=== PATIENT | male | born 1975 | race Caucasian/White ===

== ENCOUNTER 2016-09-28 11:15 | Inpatient (IN) ==
[2016-09-28 12:37] LABS: MANUAL DIFF NEEDED? NO
[2016-09-28 12:42] LABS: BASO% 0.7 % (0.0-0.8); EOS# 0.37 X1000 (0.0-0.7); HEMATOCRIT 44.8 % (42.0-52.0); HEMOGLOBIN 15.2 g/dL (14.0-18.0); IMM GRAN# 0.02 X1000 (0.0-0.04); IMM GRAN% 0.2 % (0.0-0.5); LYMPH# 1.64 X1000 (1.2-3.4); LYMPH% 17.8 % (20.5-51.1); MCH 29.9 PG (27-31); MCHC 33.9 g/dL (33-37); MONO# 0.99 X1000 (0.11-0.59); MONO% 10.7 % (1.7-9.3); MPV 9.9 FL (7.4-10.4); NEUT% 66.6 % (42.2-75.2); PLT 303 X1000 (130-400); RBC 5.09 XMIL (4.7-6.1)
[2016-09-28 12:51] LABS: AGAP 10; ALKALINE PHOSPHATASE 79 U/L (32-122); BUN 17 mg/dL (8-22); CALCIUM 8.4 mg/dL (8.8-10.2); CHLORIDE 104 mmol/L (98-107); COSMO 277; GOT 16 U/L (10-34); GPT 19 U/L (10-44); POTASSIUM 4.3 mmol/L (3.5-5.1); SODIUM 138 mmol/L (136-145); TCO2 24 mmol/L (25-35); TOTAL BILIRUBIN 0.36 mg/dL (0.20-1.00); TOTAL PROTEIN 7.3 g/dL (6.3-8.3)
[2016-09-28 12:53] LABS: INR 1.01; PROTIME 10.6 Seconds (9.2-11.7); PTT 26.9 Seconds (22.0-36.0)
[2016-09-28] MEDS ORDERED: HEPARIN IV ONE (13:09)
[2016-09-28] MEDS ORDERED: HEPARIN IV PRN (13:59)
[2016-09-28] MEDS: HEPARIN 25,000 UNITS/D5W 25,000 UNIT/250 ML IV.SOLN IV SCH (14:10)
[2016-09-28] MEDS ORDERED: ZOFRAN IV PRN (14:41)
[2016-09-28] MEDS ORDERED: TYLENOL PO PRN (14:41)
[2016-09-28] MEDS: NS 1,000 ML IV SCH (18:13)
[2016-09-28] MEDS: XANAX PO PRN (18:23)
[2016-09-28 19:37] LABS: INR 1.03; PROTIME 10.8 Seconds (9.2-11.7)
--- NOTE | 2016-09-28 21:02 | HISTORY AND PHYSICAL ---
CHIEF COMPLAINT: Left leg pain. HISTORY OF PRESENT ILLNESS: The patient is a pleasant 40-year-old male who presented to the ER today with left leg pain that essentially has been going on for 2 weeks. He stated that it started really swelling last week. He thought the pain was related to his plantar fasciitis then realized is was getting worse, so he came here. Ultrasound Doppler revealed an extensive left popliteal DVT down to his left ankle. He was essentially started on a heparin drip in the ER and we are admitting him to the unit. PAST MEDICAL HISTORY: Patient states none. SURGICAL HISTORY: None. SOCIAL HISTORY: Patient denies alcohol, tobacco use or any illicit drug use. 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 FAMILY HISTORY: States his father is a diabetic. REVIEW OF SYSTEMS: Ten point review of systems complete except for those mentioned above in the HPI. ALLERGIES: No known drug allergies. HOME MEDICATIONS: None. PHYSICAL EXAMINATION: VITAL SIGNS: Blood pressure 127/87, respirations heart rate 77, O2 saturation 100% on room air. GENERAL: Mr. Johnson is a pleasant well-nourished 40-year-old male. He did answer questions appropriately. HEENT: Atraumatic normocephalic. Pupils equal, round, reactive to light. EOMs intact. Mucous membranes moist. NECK: Supple. Trachea midline. No JVD noted. No bruits. CARDIOVASCULAR: S1, S2 auscultated, regular rate and rhythm. No murmurs, gallops, rubs. PULMONARY: Lung sounds clear and equal throughout with equal chest excursion. Nonlabored, no accessory muscle use. The patient denies shortness of breath or any chest pain. GI: Bowel sounds auscultated in all 4 quadrants. Soft, nontender, nondistended. NEUROLOGIC: Cranial nerves 2-12 intact. The patient is alert and oriented x4. MUSCULOSKELETAL: Patient is able to move extremities well. Muscle strength is equal throughout. EXTREMITIES: Warmth noted on his left lower leg from his knee down to his ankle. There is some erythema noted there. Does have good +2 pedal pulses there. Otherwise, dorsalis pedis and radial pulses are equal throughout the rest of his extremities. SKIN: Warm, dry, intact with erythema noted to the left lower leg. Otherwise, no rashes, bruises, diaphoresis noted. LABORATORY: White cell count 9.2, hemoglobin 15, hematocrit 45, platelets 303,000. Sodium 138, potassium 4.3, chloride 104, bicarb 24, BUN 17, creatinine 0.7, glucose 98. IMAGING: Doppler of his left lower extremity revealed extensive deep vein thrombosis to his popliteal down to his left ankle. ASSESSMENT AND PLAN: 1. Deep vein thrombosis to his left leg. We initiated a heparin drip. We will monitor INRs, PT and Deep venous thromboses. Hypocoagulability workup has been ordered. We will monitor. 2. Gastrointestinal prophylaxis. Proton pump inhibitor. Prilosec as been ordered. 3. Anxiety. Patient stated upon exam that he requested something for anxiety. He does not take any at home, but he says he is feeling anxious, so we have ordered Xanax 0.25 p.o. for that q.8. Dictated by VILLA Mendoza for Artem Molina MD cc: VILLA Mendoza MD
[2016-09-29] MEDS: HEPARIN 25,000 UNITS/D5W 25,000 UNIT/250 ML IV.SOLN IV SCH (02:06)
[2016-09-29] MEDS: XANAX PO PRN ×2 (02:14→11:06)
[2016-09-29] MEDS: NS 1,000 ML IV SCH ×2 (05:29→06:28)
[2016-09-29] MEDS: NORCO-7.5 PO PRN ×4 (05:30→18:29)
--- NOTE | 2016-09-29 05:59 | EKG Report ---
Test Performed on : 09/29/2016 04:56:49 AM Test Reason : chest pain Blood Pressure : / mmHG Vent. Rate : 073 BPM Atrial Rate : 073 BPM P-R Int : 166 ms QRS Dur : 100 ms QT Int : 410 ms P-R-T Axes : 002 -14 011 degrees QTc Int : 451 ms Normal sinus rhythm. Minimal voltage criteria for LVH, may be normal variant Borderline ECG When compared with ECG of 28-SEP-2016 11:34, (Unconfirmed) No significant change was found Confirmed by Allie Abebe MD ([id number]) on 09/29/2016 10:18:02 AM
[2016-09-29 06:31] LABS: MANUAL DIFF NEEDED? NO
[2016-09-29 06:33] LABS: BASO% 0.7 % (0.0-0.8); EOS# 0.38 X1000 (0.0-0.7); HEMATOCRIT 43.6 % (42.0-52.0); HEMOGLOBIN 14.7 g/dL (14.0-18.0); IMM GRAN# 0.02 X1000 (0.0-0.04); IMM GRAN% 0.2 % (0.0-0.5); LYMPH# 2.21 X1000 (1.2-3.4); LYMPH% 23.1 % (20.5-51.1); MCH 29.9 PG (27-31); MCHC 33.7 g/dL (33-37); MCV 88.8 FL (81-99); MONO# 0.63 X1000 (0.11-0.59); MONO% 6.6 % (1.7-9.3); MPV 9.5 FL (7.4-10.4); NEUT% 65.4 % (42.2-75.2); PLT 280 X1000 (130-400); RBC 4.91 XMIL (4.7-6.1)
[2016-09-29 06:45] LABS: INR 1.06; PROTIME 11.2 Seconds (9.2-11.7)
[2016-09-29 06:51] LABS: PTT 74.2 Seconds (22.0-36.0)
[2016-09-29 06:53] LABS: AGAP 12; ALBUMIN 3.6 g/dL (3.5-5.0); ALKALINE PHOSPHATASE 73 U/L (32-122); BUN 14 mg/dL (8-22); CALCIUM 8.7 mg/dL (8.8-10.2); CHLORIDE 106 mmol/L (98-107); COSMO 283; GOT 14 U/L (10-34); GPT 18 U/L (10-44); MAGNESIUM 2.1 mg/dL (1.5-2.7); POTASSIUM 3.8 mmol/L (3.5-5.1); SODIUM 141 mmol/L (136-145); TCO2 23 mmol/L (25-35); TOTAL BILIRUBIN 0.51 mg/dL (0.20-1.00); TOTAL PROTEIN 6.8 g/dL (6.3-8.3)
[2016-09-29] MEDS: PRILOSEC PO SCH (09:28)
[2016-09-29] MEDS: XARELTO PO SCH ×2 (09:30→20:54)
--- NOTE | 2016-09-29 10:17 | EKG Report ---
Test Performed on : 09/28/2016 11:34:00 AM Test Reason : ED. NOT ORDERED IN [place] Blood Pressure : / mmHG Vent. Rate : 092 BPM Atrial Rate : 092 BPM P-R Int : 154 ms QRS Dur : 100 ms QT Int : 356 ms P-R-T Axes : 066 -21 028 degrees QTc Int : 440 ms Normal sinus rhythm. Minimal voltage criteria for LVH, may be normal variant Nonspecific T wave abnormality Abnormal ECG When compared with ECG of 05-FEB-2011 16:46, Nonspecific T wave abnormality now evident in Anterior leads Unconfirmed Result
--- NOTE | 2016-09-29 10:57 | Diag Imaging Result Doc PS360 ---
ANGIOGRAM/PULMONARY ARTERIES - 09/29/2016 INDICATION: suspected PE TECHNIQUE: Axial CT images were obtained after administering intravenous contrast. Coronal MIP images were generated. A CT dose reduction protocol was used. COMPARISON: None FINDINGS: There are numerous large acute appearing pulmonary emboli. These involve the right middle and lower lobe arteries, and numerous bilateral segmental pulmonary arteries. No adenopathy. Heart size is normal. The lungs are clear. IMPRESSION: Numerous bilateral pulmonary emboli. A report was immediately called to Dr. Bergeron. Electronically signed by Thompson Hayes 09/29/2016 10:55 AM
--- NOTE | 2016-09-29 12:52 | PROGRESS NOTE ---
DATE: 09/29/2016 SUBJECTIVE: Patient reports feeling fine. No shortness of breath reported. No chest pain. No fever or chills. OBJECTIVE: Vital Signs: Temperature 97.5 degrees, heart rate 70, respiratory 14, blood pressure 154/82. O2 saturation 95% on room air. General Examination: This is a very pleasant, 40-year- old obese male, lying in bed, in no acute distress. HEENT: Head is normocephalic, atraumatic. Anicteric sclerae and pale conjunctivae. Mucous membranes moist. Neck: Supple. No JVD noted. No carotid bruits. No lymphadenopathy. No thyromegaly. Cardiovascular: S1, S2 heard. No murmurs, gallops, or rubs. Regular rate and rhythm. Respiratory: Clear bilaterally to auscultation. No work of breathing or using accessory muscles. Abdomen: Soft. Extremities: Warm noted in the left lower leg from his knee down to his ankle with some erythema noted. No clubbing, cyanosis, or edema. Peripheral pulses present in both legs. Neurological: Patient alert oriented x3. Able to move 4 extremities. Cranial nerves grossly normal. LABORATORY DATA: Unremarkable. Angiogram of the chest revealed bilateral pulmonary embolism. ASSESSMENT AND PLAN: DVT/pulmonary embolism. At this point, because the patient is not symptomatic and blood pressure is okay, he is hemodynamically stable, we will refer to transfer this patient to a regular room. Because of this newly diagnosed of pulmonary embolism that is big, we prefer to have on ultrasound of the heart evaluated to see if there is any abnormality there or if there is any right heart strain noted. Otherwise this patient can be discharged tomorrow morning, if echo is okay and patient is feeling okay. cc: Artem Moilna MD
--- NOTE | 2016-09-29 18:18 | ECHO REPORT ---
ORDER DATE: 09/29/2016 INTERPRETING PHYSICIAN: Dr. Dougherty REQUESTING PHYSICIAN: CLINICAL INDICATIONS: A 40-year-old male, morbidly obese, bilateral pulmonary emboli. M-MODE MEASUREMENTS: Right ventricle: 3.7 cm. Left ventricle end diastole: 5.4 cm. Left ventricle end systole: 3.2 cm. Posterior wall: 1.1 cm. Interventricular septum: 1.1 cm. Left atrium: 3.9 cm. Aortic root: 3.6 cm. SUMMARY OF 2-DIMENSIONAL IMAGING: The left ventricular function is probably normal. Ejection fraction estimated visually to be in the order of 60-65%. No wall motion abnormality is noted. The right ventricle is moderately enlarged. Definity was used to opacify the left ventricular chamber because of poor acoustic windows. The patient is morbidly obese. The atria did not appear to be particularly dilated. There is no pericardial effusion. The mitral valve appeared to be grossly normal. Pulse wave Doppler of mitral inflow is normal. Tissue Doppler of septal and lateral mitral annulus averages 15 cm per second. There is no diastolic dysfunction. The aortic valve also appears to be grossly normal. Doppler pattern of this valve is unremarkable. The pulmonic valve showed normal Doppler pattern. The tricuspid valve also showed normal Doppler pattern with pulmonary pressure estimated at 23 mmHg. This study was technically difficult. Clinical correlation recommended. cc: MD Artem Morataya MD
[2016-09-30 04:58] LABS: URINE CULTURE NEEDED? NO; URINE MICRO REVIEW NEEDED? NO; URINE SOURCE CLEAN CATCH
[2016-09-30 05:02] LABS: BILIRUBIN URINE NEGATIVE (NEGATIVE); BLOOD URINE NEGATIVE (NEGATIVE); COLOR YELLOW; GLUCOSE URINE NEGATIVE (NEGATIVE); LEUKOCYTES URINE NEGATIVE (NEGATIVE); NITRITE URINE NEGATIVE (NEGATIVE); PH URINE 5.5; PROTEIN URINE NEGATIVE (NEGATIVE); SP GRAVITY URINE 1.023; TURBIDITY URINE CLEAR (CLEAR); UROBILINOGEN URINE NORMAL (NORMAL)
[2016-09-30 05:03] LABS: UR EPITHELIAL CELLS <10 /HPF (<10); URINE BACTERIA NEGATIVE /HPF; URINE RBC <10 /HPF (<10); URINE WBC <10 /HPF (<10)
[2016-09-30 05:43] LABS: MANUAL DIFF NEEDED? NO
[2016-09-30 05:48] LABS: BASO% 0.4 % (0.0-0.8); EOS# 0.29 X1000 (0.0-0.7); EOS% 2.8 % (0.0-10.0); HEMATOCRIT 44.2 % (42.0-52.0); HEMOGLOBIN 14.8 g/dL (14.0-18.0); IMM GRAN# 0.03 X1000 (0.0-0.04); IMM GRAN% 0.3 % (0.0-0.5); LYMPH% 12.7 % (20.5-51.1); MCH 29.8 PG (27-31); MCHC 33.5 g/dL (33-37); MCV 89.1 FL (81-99); MONO# 0.82 X1000 (0.11-0.59); MPV 9.7 FL (7.4-10.4); NEUT% 75.8 % (42.2-75.2); PLT 312 X1000 (130-400); RBC 4.96 XMIL (4.7-6.1)
[2016-09-30] MEDS: XARELTO PO SCH ×2 (08:28→20:00)
[2016-09-30] MEDS: PRILOSEC PO SCH (08:28)
[2016-09-30] MEDS: NORCO-7.5 PO PRN (12:14)
--- NOTE | 2016-09-30 15:01 | Extremity Venous Study ---
PROCEDURE NAME: Venous U/S Left Leg - 09/28/2016 PROCEDURE: This is the left lower extremity venous duplex and color flow imaging study using the [facility] ([facility])id E 9 ultrasound system with a 9 L-D transducer. DATE OF STUDY: 09/28/2016. REFERRING PHYSICIAN: Dr. Kelley. PATIENT PROFILE: A 40-year-old male. DENTAL OFFICE ASSISTANT: Marciano. INDICATIONS: 1. Left lower extremity swelling, ICD 10 M 79.89. 2. Elevated D-dimer ICD 10 R 94.2. FINDINGS: The left common femoral vein and its branches, the deep and superficial femoral veins were satisfactorily imaged. In the mid superficial femoral vein and extending distally into the popliteal vein and the small veins below the left knee, there was an acute deep venous thrombosis which was obstructing. The superficial veins of the left lower extremity were compressible throughout their length. INTERPRETATION: Acute long segment deep venous thrombosis involving the left lower extremity. This clot involved the superficial femoral vein in the mid thigh extending distally into the popliteal vein and into the small veins below the knee on the left. There is no superficial venous thrombosis. cc: Elenita Godoy MD
--- NOTE | 2016-09-30 16:32 | PROGRESS NOTE ---
DATE: 09/30/2016 SUBJECTIVE: Today, Mr. Johnson refers to be doing relatively fine. No shortness of breath except when he moves around. OBJECTIVE: Vital signs: Blood pressure is 123/73, pulse 84, respirations 20, temperature 98 degrees. General: Mr. Johnson is a 40-year-old male. He is in bed and does not seems to be in any remarkable distress. HEENT: Mucosa is pink and moist. Anicteric. Acyanotic. Neck: Supple. Chest: Clear. Cardiovascular: Regular rate and rhythm. Abdomen: Soft, nontender. Extremities: No pedal edema. Central Nervous System: Patient is alert and oriented x4. There is no focal neurological deficit. LABORATORY DATA: WBC is 10.20, hemoglobin is 14.8, platelet count of 312,000. The patient's TSH is 4.78. CTA of the lungs showed numerous bilateral pulmonary emboli. Doppler ultrasound of the leg showed acute long segment DVT involving the left lower extremity. ASSESSMENT: 1. Acute hypoxemic respiratory distress secondary to pulmonary embolism. 2. Venous thromboembolus, including deep vein thrombosis and pulmonary embolus. 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 Regardless, I think it is reasonable the thrombophilic workup that has been done. We are going to consult Heme-Onc to evaluate the patient so that they can follow him up with the genetic testing, which would take some time for the results to be available. For now , patient will continue with the rivaroxaban as ordered. 3. Abnormal thyroid function tests. We will going to repeat this with a free T4. 4. Obesity with a body mass index of 42.1. Patient has been counseled. In general, I think Mr. Johnson is relatively stable. Will get done Heme-Onc to see him and make determination about the anticoagulation and also have a plan for followup on an outpatient basis. cc: MD SHIRA Hahn
[2016-09-30] MEDS: XANAX PO PRN (19:04)
[2016-10-01 05:51] LABS: MANUAL DIFF NEEDED? NO
[2016-10-01 05:57] LABS: BASO% 0.6 % (0.0-0.8); EOS# 0.32 X1000 (0.0-0.7); EOS% 3.6 % (0.0-10.0); HEMATOCRIT 43.2 % (42.0-52.0); HEMOGLOBIN 14.5 g/dL (14.0-18.0); IMM GRAN# 0.02 X1000 (0.0-0.04); IMM GRAN% 0.2 % (0.0-0.5); LYMPH# 1.61 X1000 (1.2-3.4); LYMPH% 18.3 % (20.5-51.1); MCH 29.8 PG (27-31); MCHC 33.6 g/dL (33-37); MCV 88.7 FL (81-99); MONO# 0.71 X1000 (0.11-0.59); MONO% 8.1 % (1.7-9.3); MPV 9.8 FL (7.4-10.4); NEUT% 69.2 % (42.2-75.2); PLT 312 X1000 (130-400); RBC 4.87 XMIL (4.7-6.1)
[2016-10-01 06:20] LABS: FREE T4 1.16 ng/dL (0.93-1.70)
[2016-10-01] MEDS: XARELTO PO SCH (09:43)
[2016-10-01] MEDS: PRILOSEC PO SCH (09:43)
[2016-10-01 11:48] VITALS: BP 129/80
--- NOTE | 2016-10-01 11:49 | CONSULTATION ---
DATE OF CONSULTATION: 10/01/2016 REASON FOR CONSULT: Patient has extensive left lower extremity deep venous thrombosis and bilateral pulmonary embolisms. 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 He had seen Dr. Jonathan Garvin in the past but has not seen him for many years, so he went to a walk-in clinic in [place] 2 weeks ago. They obtained an x-ray. It was negative and sent him home. The pain continued to worsen, so he went to the walk-in clinic in [place]. They performed a D-dimer and it was elevated, so they sent him to the emergency room for further evaluation. Upon arrival to the emergency room, his D-dimer was 2.97. Lower extremity venous studies were obtained which showed extensive left lower extremity deep venous thrombosis. CTA of the chest was also obtained, which showed numerous large bilateral pulmonary embolisms. The patient was started on a heparin drip which has been transitioned over to Xarelto now. An echocardiogram has been performed. His ejection fraction was 60-65% and showed moderately enlarged right ventricle. The patient denies any history of blood clots. He does not smoke. He denies dyspnea or chest pain. 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 He does not take frequent breaks. A typical day for him is driving approximately 4 hours every day. FAMILY HISTORY: There is a family history with maternal grandmother having deep venous thrombosis, but he thinks she obtained it after a surgery. REVIEW OF SYSTEMS: Negative, unless indicated in the history of present illness. PAST MEDICAL HISTORY: none. FAMILY AND SOCIAL HISTORY: The patient's maternal grandmother had a deep venous thrombosis after surgery. The patient denies alcohol, illicit drug, or tobacco use. He has a supportive family. 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 HOME MEDICATIONS: There are none. ALLERGIES: There are no known allergies. PHYSICAL EXAMINATION: Constitutional: This is a male, in no acute distress. HEENT: Head is normocephalic, atraumatic. Pupils equal, round, symmetric. Mucous membranes are moist. Trachea is midline. Cardiovascular: S1, S2 audible to auscultation with no heaves, lifts, or thrills. No murmurs. Pulmonary: Breath sounds clear to auscultation with normal respiratory effort. Abdomen: Abdomen is soft, nondistended. Positive bowel sounds in all 4 quadrants. Musculoskeletal: Moves all extremities. Extremities: Left lower extremity has some generalized edema. Neurologic: Alert and orient x3. Psychiatric: Appropriate to situation. DIAGNOSTIC DATA: CTA of the chest shows numerous large bilateral pulmonary embolism. Lower extremity ultrasound shows extensive left lower extremity deep vein thrombosis. WBC is 8.78, a hemoglobin of 14.5, hematocrit 43.2, platelet count 312,000. Sodium 141, potassium 3.8, BUN 14, creatinine 0.7. ASSESSMENT AND PLAN: 1. Left lower extremity extensive deep venous thrombosis and bilateral pulmonary embolisms. Could be related to patient's morbid obesity and his career of driving a truck and sitting for multiple hours. Hypercoagulable workup is currently pending. We will continue to monitor that and make further recommendations. He has received heparin and he is now on Xarelto 15 mg b.i.d., which was started on 09/29/2016. Will do that for 3 weeks and then transition to Xarelto 20 mg daily. His echo revealed moderately enlarged right ventricle. Discussed with Dr. Healy. No right heart strain. No need for IVC filter. 2. Gastrointestinal prophylaxis. Prilosec. 3. Anxiety. He is receiving Xanax p.r.n. 4. Morbid obesity. This was discussed with the patient. Advice given. Dictated by VILLA Navarro for Kar Bradford MD cc: VILLA Navarro MD [facility]
[2016-10-01] MEDS: XANAX PO PRN (13:24)
[2016-10-01] MEDS ORDERED: XARELTO PO SCH (17:00)
--- NOTE | 2016-10-02 11:06 | DISCHARGE SUMMARY ---
ADMISSION DATE: 09/28/2016 DISCHARGE DATE: 10/01/2016 CONSULTATIONS: Dr. Bradford with hematology/oncology. PERTINENT PROCEDURES: 1. Venous extremity Dopplers showed an acute onset of DVT involving the left lower extremity, clot involving the superficial femoral vein in the mid thigh extending distally into the popliteal vein and into the small veins below the knee on the left. No superficial venous thrombosis. 2. Pulmonary arteriogram showed numerous bilateral pulmonary emboli. 3. Echocardiogram showed an EF of 60-65%. DISCHARGE DIAGNOSES: 1. Acute hypoxemic respiratory distress secondary to pulmonary embolism, resolved. 2. Venous thrombosis including deep venous thrombosis and pulmonary embolism, etiology unclear. 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 However, a thrombolytic workup has been done with a hematology/oncology evaluation and will follow him up on an outpatient basis. The patient will continue with Xarelto. 3. Obesity with a body mass index of 42.1. Patient has been counseled on diet and exercise, exercise when appropriate per hematology/oncology. HOSPITAL COURSE: Mr. 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 He had been having left lower extremity discomfort for 2 weeks[address] He had seen Dr. Jonathan Garvin in the past but has not seen him in many years. He went to a walk-in clinic in [place] 2 weeks ago. They obtained an x-ray that was negative. He was sent home. Pain continued to worsen. He went to a walk-in clinic in [place]. They performed a D-dimer and it was elevated so he was sent to the ED for further evaluation. Upon arrival to the ED, his D-dimer was 2.97. Lower extremity venous studies were obtained that showed numerous large bilateral pulmonary embolism. Patient was started on a heparin drip, transitioned to Xarelto. Had echocardiogram performed with an EF of 60-65% that showed a moderately enlarged right ventricle. The patient denied any history of blood clots. He is not a smoker. No chest pain. He was evaluated by hematology/oncology who agrees with Xarelto and will continue on Xarelto 15 mg p.o. b.i.d. for 3 weeks and then transition to Xarelto 20 mg daily. The case was also discussed with Dr. Dougherty because of the moderately enlarged right ventricle. There was no right heart strain so need for an IVC filter. Hematology/oncology will continue to follow up with his thrombolytic workup as well as any genetic testing. He is appropriate for discharge home today. Vital signs at time of his discharge, temperature is 98 degrees, heart rate 73, respirations 20, blood pressure is 129/80, O2 is 98% on room air. DISCHARGE DIET: Regular. DISCHARGE MEDICATIONS: As per Dr. Clemens: 1. Xanax 0.25 mg p.o. q.8 hours p.r.n. 2. Xarelto 15 mg p.o. b.i.d. until 10/21/2016 and then transition to 20 mg p.o. with supper. He was given 3 refills. FOLLOWUP: The patient is being discharged home. He will continue to follow up with Dr. Bradford to follow testing. The patient has been advised about diet and exercise when appropriate. The patient can return to the ED for any worsening of symptoms. Discharge time, 30 minutes. Dictated by VILLA Torres for Kory Clemens MD cc: Kory Clemens MD
--- NOTE | 2016-10-14 13:52 | PROVIDER DOCUMENTATION ---
This chart was entered by Katharina Amos Scribe, acting as scribe for Cedric Moore MD. HPI-Musculoskeletal Pain/Inj - GENERAL Chief Complaint: Abnormal Lab[s] Stated Complaint: D DIMER ELEVATED Time Seen by Provider: 09/28/16 13:07 Source: patient - HX OF PRESENT ILLNESS-MUSKULOSKELTAL Nature of Presenting Problem: Pt is 40 y/o M presents to the ED with L leg pain. Pt states pain has been present for 2 weeks. 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 Pt states pain started as heel pain. Pt states was seen at [facility] and was told his D dimer was high. Quality of Pain: reports: aching Severity in ED: mild Onset/Duration: other (2wks) Timing: still present Modifying Factors: improves with: nothing Any recent injury?: No Locality of Occurance: Home Similar Symptoms Previously?: Yes Recently seen or treated by another doctor?: Yes ([facility] this am ) - LOWER EXTREMITY PAIN/INJURY Lower Extremities Pain: leg: left (pain ) Context / Method of Injury: reports: unknown Associated Symptoms: reports: denies symptoms Review of Systems - Adult - REVIEW OF SYSTEMS - ADULT Constitutional: reports: no symptoms reported Eyes: reports: no symptoms reported Ears, Nose, Mouth & Throat: reports: no symptoms reported Cardiovascular: reports: no symptoms reported Respiratory: reports: no symptoms reported Gastrointestinal: reports: no symptoms reported Genitourinary: reports: no symptoms reported Musculoskeletal: reports: other (L leg pain). denies: bone pain, back pain, joint pain Integumentary: reports: no symptoms reported Neurological: reports: no symptoms reported Psychiatric: reports: no symptoms reported Endocrine: reports: no symptoms reported Hematologic/Lymphatic: reports: no symptoms reported Allergic/Immunologic: reports: no symptoms reported All Other Systems: Reviewed and Negative Past History - Adult - PAST MEDICAL HISTORY-ADULT Review of Records: reports: Nursing Assessment Review, Medications Reviewed, Social history reviewed & non-contributory. Major Childhood Illnesses: reports: denies history Cardiovascular: reports: denies history Respiratory: reports: denies history Gastrointestinal: reports: denies history Obstetrical/Gynecological: reports: denies history Genitourinary: reports: denies history Musculoskeletal: reports: denies history Neurological: reports: denies history Endocrine/Immune: reports: denies history Other Conditions: reports: denies history - PRIOR SURGERIES/PROCEDURES Surgical/Procedure History: reports: reviewed, not pertinent - IMMUNIZATION STATUS Childhood Immunizations: See Nurse Assessment Flu Vaccine: See Nurse Assessment - FAMILY HISTORY Family History: reviewed, not pertinent - SOCIAL HISTORY Smoking: denies Substance Use: denies Living Situation: family Physical Exam-Injury Related - Physical Exam-Injury Related Initial Vital Signs Reviewed: Yes General Appearance: appears well, alert, no apparent distress Eyes: PERRL/EOMI, pink conjunctivae Head, Ears, Nose, Mouth & Throat: normal ENT inspection Neck: normal inspection Respiratory: chest non-tender, lungs clear, normal breath sounds Cardiovascular: normal peripheral pulses, regular rate, rhythm Abdominal Exam: normal bowel sounds, non tender, soft Lymphatic: no adenopathy Back Exam: normal inspection Extremity: normal range of motion, swelling (L leg), tenderness (L leg). negative: erythema Integumentary: normal color, warm/dry, swelling (L leg), tenderness (L leg) Neurologic: grossly normal Psych/Mental Status: normal mood/affect, oriented x 3 Progress - PLAN OF CARE/RESULTS Progress/Plan/Lab Results: Vital Signs - 8 hr 09/28/16 11:22 09/28/16 12:05 09/28/16 13:18 Temperature 98.3 F Pulse Rate 86 81 82 Respiratory Rate 20 15 18 Blood Pressure 140/88 133/78 155/83 O2 Sat by Pulse Oximetry 100 98 93 L Laboratory Results - last 24 hr 09/28/16 09/28/16 09/28/16 12:26 12:26 12:26 WBC 9.21 RBC 5.09 Hgb 15.2 Hct 44.8 MCV 88.0 MCH 29.9 MCHC 33.9 RDW Std Deviation 13.0 Plt Count 303 MPV 9.9 Immature Gran % (Auto) 0.2 Neut % (Auto) 66.6 Lymph % (Auto) 17.8 L Brule % (Auto) 10.7 H Eos % (Auto) 4.0 Baso % (Auto) 0.7 Immature Gran # (Auto) 0.02 Neut # (Auto) 6.13 Lymph # (Auto) 1.64 Brule # (Auto) 0.99 H Eos # (Auto) 0.37 Baso # (Auto) 0.06 PT INR PTT (Actin FS) D-Dimer 2.97 H Sodium 138 Potassium 4.3 Chloride 104 Carbon Dioxide 24 L Anion Gap 10 BUN 17 Creatinine 0.7 Estimated GFR/1.73 m2 > 60 BUN/Creatinine Ratio 24 Glucose 98 Calculated Osmolality 277 Calcium 8.4 L Total Bilirubin 0.36 AST 16 ALT 19 Alkaline Phosphatase 79 Total Protein 7.3 Albumin 4.0 Globulin 3.3 Albumin/Globulin Ratio 1.2 09/28/16 12:26 WBC RBC Hgb Hct MCV MCH MCHC RDW Std Deviation Plt Count MPV Immature Gran % (Auto) Neut % (Auto) Lymph % (Auto) Brule % (Auto) Eos % (Auto) Baso % (Auto) Immature Gran # (Auto) Neut # (Auto) Lymph # (Auto) Brule # (Auto) Eos # (Auto) Baso # (Auto) PT 10.6 INR 1.01 PTT (Actin FS) 26.9 D-Dimer Sodium Potassium Chloride Carbon Dioxide Anion Gap BUN Creatinine Estimated GFR/1.73 m2 BUN/Creatinine Ratio Glucose Calculated Osmolality Calcium Total Bilirubin AST ALT Alkaline Phosphatase Total Protein Albumin Globulin Albumin/Globulin Ratio Orders Category Date Time Status CBC WITH ELECTRONIC DIFF [HEME] Stat Lab 09/28/16 12:26 Completed COMPREHENSIVE METABOLIC PANEL [CHEM] Stat Lab 09/28/16 12:26 Completed D-DIMER [CHEM] Stat Lab 09/28/16 12:26 Completed PROTIME WITH INR [COAG] Stat Lab 09/28/16 12:26 Completed PTT [COAG] Stat Lab 09/28/16 12:26 Completed UA NIMS W/REFLEX CULT [URINALYSIS] Stat Lab 09/28/16 11:53 Uncollected Heparin Med 09/28/16 13:09 Discontinued 5,000 unit IV NOW ONE Heparin 25,000 Units/D5w Med 09/28/16 13:15 Ordered 25,000 unit in 250 ml IV 12 unit/kg/hr US [Venous U/S Left Leg] Stat Ther 09/28/16 11:56 Completed Result Diagrams: 09/28/16 12:26 09/28/16 12:26 - ULTRASOUND (By Radiology) 1 US Study: Lower Ext (L leg) Impression: Abnormal US Results: DVT mid thigh to ankle per US tech - CONSULTS/PCP/HOSPITALIST Notification #1 *Consult/PCP/Hospitalist*: JESUS Diallo Time Discussed: 13:30 Reason/Comments: consult with JESUS Diallo about admit Consult Disposition: other #2 Consult: Dr. Bergeron Time Discussed: 13:43 Reason/Comments: consults with Dr. Bergeron about admit of Pt Consult Disposition: Admit Departure - Departure Date of Disposition Decision: 09/28/16 Time of Disposition Decision: 13:13 DIAGNOSIS: DVT (deep venous thrombosis) Disposition: ADMITTED INPATIENT 09 Certified Medical Emergency: Emergent Condition: Stable Referrals and Follow-Ups: None,PCP [Primary Care Provider] - - Critical Care Note This patient required my direct & personal management of CC.: Yes Total Time (mins): 35 Critical Care Statement: This patient required my direct personal management to treat or rule out processes, the absence of which, could potentiallly result in sudden, clinically significant life or limb threatening deterioration. This chart was documented by the indicated scribe, (Katharina Amos Scribe) and accurately reflects the services I performed and decisions made by me, Cedric Moore MD, as attested by the provider's signature.
== END 2016-10-01 16:09 | disposition home or self-care (01) ==
LOC: ED 11:15 → SUATTDRO 14:36 → ICU 14:36 → 4N 09-29 14:10
PROVIDERS: ATTEND Internal Medicine